=== PATIENT | female | born 1985 | race Caucasian/White ===

== ENCOUNTER 2017-03-01 19:03 | Emergency (ER) | payer MEDICAID ==
[~2017-03-01] VITALS: Ht 149.9 cm; Wt 65.4 kg
[2017-03-01 19:13] VITALS: BP 121/99
--- NOTE | 2017-03-01 19:30 | NUR ---
31/F BIB FAMILY RT FLANK PAIN x 1 DAYS. PAIN 10/10 SHARP RADIATING TO ABDOMEN. PT STATES PT HAS BURNING DURING URINATION. PT BREATHING IS UNLABORED, CLEAR BI LAT. PT DENIES ANY MEDICAL HX AND NKA
--- NOTE | 2017-03-01 19:38 | NUR ---
PT TAKEN TO BED 4
--- NOTE | 2017-03-01 19:48 | NUR ---
Dr. Stern evaluating patient at bedside.
[2017-03-01] MEDS ORDERED: KETOROLAC 30 MG/ML VIAL IM ONE (19:55)
[2017-03-01] MEDS ORDERED: PHENAZOPYRIDINE 100 MG TAB PO ONE (19:55)
--- NOTE | 2017-03-01 19:59 | NUR ---
PT TAKEN TO CT
[2017-03-01 20:57] LABS: APPEARANCE,URINE CLOUDY (CLEAR); BILIRUBIN,URINE NEGATIVE (NEGATIVE); BLOOD, URINE 3+ (NEGATIVE); COLOR,URINE YELLOW (YELLOW); LEUKOCYTE ESTERASE ,URINE 3+ (NEGATIVE); NITRITE, URINE NEGATIVE (NEGATIVE); PROTEIN,URINE TRACE (NEGATIVE); UGLUCOSE NEGATIVE (NEGATIVE); UROBILINOGEN,URINE 0.2 EU/dL (0.2 - 1)
[2017-03-01 21:05] LABS: BACTERIA,URINE 2+ /HPF (None Seen); RBC,URINE 20-50 /HPF (0-5); SQUAMOUS EPITHELIAL CELL,UR None Seen /LPF (0-3 (FEW)); WBC,URINE TOO MANY TO COUNT /HPF (0-5)
[2017-03-01] MEDS ORDERED: cefTRIAXone 1,000 MG in LIDOCAINE 1% ED 2.1 ML IM ONE (21:10)
[2017-03-01 21:37] VITALS: BP 117/84
--- NOTE | 2017-03-01 21:37 | NUR ---
Patient discharged with v/s stable. Written and verbal after care instructions given and explained. Patient alert, oriented and verbalized understanding of instructions. Ambulatory with steady gait. All questions addressed prior to discharge. ID band removed. Patient advised to follow up with PMD. Rx of NAPROSYN 500MG AND PYRIDIUM 100MG AND CIPRO 500MG given. Patient educated on indication of medication including possible reaction and side effects. Opportunity to ask questions provided and answered.
== END 2017-03-01 21:37 | disposition home or self-care (01) ==
LOC: MED 19:03
DX: N39.0 Urinary tract infection, site not specified (principal)
CPT/HCPCS: 74176; 81001; 81025; 87086; 96372; 99285; J0696; J1885; J2001